=== PATIENT | male | born 1995 | race Caucasian/White ===

== ENCOUNTER 2024-07-25 16:18 | Emergency (ER) | payer SELFPAY ==
[2024-07-25] MEDS ORDERED: Ibuprofen 800 MG TAB ONE (16:45)
[2024-07-25] MEDS ORDERED: Oseltamivir 75 MG CAP ONE (16:45)
[2024-07-25] MEDS ORDERED: Albuterol 200 PUFF (6.7GM INHALER) ONE (16:58)
== END 2024-07-25 16:50 | disposition home or self-care (01) ==
LOC: MADERS 16:18
DX: J11.1 Influenza due to unidentified influenza virus with other respiratory manifestations (principal); Z87.891 Personal history of nicotine dependence
CPT/HCPCS: 87428; 94760; 99285